=== PATIENT | female | born 1975 | race Caucasian/White ===

== ENCOUNTER 2019-08-04 08:01 | Emergency (ER) | payer BC ==
[~2019-08-04] VITALS: Ht 165.1 cm; Wt 88.5 kg
[2019-08-04 08:01] VITALS: BP_SYST 120
--- NOTE | 2019-08-04 08:01 | NUR ---
BROUGHT BACK TO BED #4 AND TRIAGED. REPORT GIVEN TO LEIDY
--- NOTE | 2019-08-04 08:14 | NUR ---
Patient is awake, alert, and oriented x4. Patient is complaining of a rash and pruritis. Patient presents with rash all over body, states she had a protein shake after working out at 2100. She denies pain, nausea, and vomiting.
[2019-08-04] MEDS ORDERED: DIPHENHYDRAMINE HCL 50 MG CAPSULE PO ONE (08:15)
[2019-08-04] MEDS ORDERED: PREDNISONE 20 MG TABLET PO ONE (08:15)
--- NOTE | 2019-08-04 08:15 | NUR ---
ER Dr. Hammer at bedside examining patient.
[2019-08-04] MEDS ORDERED: methylPREDNISolone SOD SUCC/PF 62.5 MG/ML VIAL IM ONE (09:15)
[2019-08-04 09:20] VITALS: BP_SYST 126
--- NOTE | 2019-08-04 09:20 | NUR ---
Patient given written and verbal discharge instructions and verbalizes understanding. ER MD discussed with patient the results and treatment provided. Patient in stable condition. ID arm band removed. Rx of prednisone, benadryl given. Patient educated on pain management and to follow up with PMD. Pain Scale 0/10. Opportunity for questions provided and answered. Medication side effect fact sheet provided.
== END 2019-08-04 09:20 | disposition home or self-care (01) ==
LOC: SED 08:01
DX: L23.6 Allergic contact dermatitis due to food in contact with the skin (principal)
CPT/HCPCS: 96372; 99283; J2930; J7512; Q0163